=== PATIENT | female | born 1965 | race Caucasian/White ===

== ENCOUNTER 2019-12-16 08:38 | Day surgery (SDC) | payer MEDICARE, OTHER ==
[~2019-12-16] VITALS: Ht 162.6 cm; Wt 97.1 kg
[~2019-12-16 08:38] MED LIST: CART180C3 PO; GLUC500T PO; LASI20TA3 PO; LOPR1TAB6 PO; LOVA40TA PO; LR 1,000 ML IV ONE; PANT40TA3 PO; PROM12.56 PO; SUCR1TAB56 PO; ZOFR4TAB16 PO; ZOLO100T PO
--- NOTE | 2019-12-16 12:59 | ROOR ---
Patient Name: Sabrina Mccann Procedure Date: 12/16/2019 11:31 AM Date of : 1965 Age: 54 Room: [facility] Gender: Female Note Status: Finalized Procedure: Upper GI endoscopy Indications: Heartburn, Abnormal UGI series Providers: Ashwin BOONE MD Referring MD: Sudhakar Ross MD Requesting Provider: Medicines: Monitored Anesthesia Care Complications: No immediate complications. Procedure: Pre-Anesthesia Assessment: - The heart rate, respiratory rate, oxygen saturations, blood pressure, adequacy of pulmonary ventilation, and response to care were monitored throughout the procedure. The Endoscope was introduced through the mouth, and advanced to the second part of duodenum. The upper GI endoscopy was accomplished without difficulty. The patient tolerated the procedure well. Findings: The examined esophagus was normal. Patchy mildly erythematous mucosa without bleeding was found in the gastric antrum. Biopsies were taken with a cold forceps for histology. Bilious fluid was found in the entire examined stomach. The exam of the stomach was otherwise normal. (large volume) The examined duodenum was normal. Impression: - Normal esophagus. - Mild gastritis. Biopsied - Otherwise normal stomach. (no ulcers) - Normal examined duodenum. Recommendation: - Continue present medications. - Telephone endoscopist for pathology results in 2 weeks. - Return to referring physician as previously scheduled. Ashwin Boone MD Ashwin BOONE MD 12/16/2019 12:59:11 PM Electronically signed by Ashwin BOONE MD Number of Addenda: 0 Note Initiated On: 12/16/2019 11:31 AM Estimated Blood Loss: Estimated blood loss: none.
[2019-12-16] MEDS ORDERED: propofoL 200 MG/20 ML VIAL As Ordered ONE (13:06)
[2019-12-16] MEDS ORDERED: LIDOCAINE 2% INJ 100 MG/5 ML SDV (FOR ANES.) As Ordered ONE (13:06)
[2019-12-16 13:20] VITALS: BP 138/86
== END 2019-12-16 13:36 | disposition home or self-care (01) ==
LOC: M OPP 08:38
PROVIDERS: ATTEND Internal Medicine Gastroenterology
DX: K31.89 Other diseases of stomach and duodenum (principal); R12 Heartburn; R93.3 Abnormal findings on diagnostic imaging of other parts of digestive tract; I48.91 Unspecified atrial fibrillation; G47.30 Sleep apnea, unspecified; F17.210 Nicotine dependence, cigarettes, uncomplicated; Z79.899 Other long term (current) drug therapy; Z88.5 Allergy status to narcotic agent; Z91.041 Radiographic dye allergy status; Z95.0 Presence of cardiac pacemaker

== ENCOUNTER → 2024-12-31 | Outpatient (REF) | payer MEDICARE, OTHER ==
[~2024-12-31] MED LIST changes: -LR 1,000 ML IV ONE; +ONDA-83 PO; +PANT40TA29 PO; -PANT40TA3 PO; +TIRZ5PEN SQ
== END ==
LOC: M SFHCDERM 16:25
PROVIDERS: ATTEND Nurse Practitioner Family
DX: D49.2 Neoplasm of unspecified behavior of bone, soft tissue, and skin (principal); C44.91 Basal cell carcinoma of skin, unspecified

== ENCOUNTER 2025-01-11 09:41 | Day surgery (SDC) | payer MEDICARE, OTHER ==
[~2025-01-11] VITALS: Ht 157.5 cm; Wt 82.4 kg
[~2025-01-11 09:41] MED LIST changes: +GLYCOPYRROLATE INJ 0.2 MG/ML 2 ML VIAL As Ordered ONE; +LIDOCAINE 2% 100MG/5ML SDV (FOR ANES.) As Ordered ONE; +fentaNYL 100 MCG/2 ML INJECTION As Ordered ONE; +propofoL 200 MG/20 ML VIAL As Ordered ONE
[2025-01-11 11:35] VITALS: TEMP 98.6
[2025-01-11 11:58] VITALS: BP 115/76; O2SAT 95
== END 2025-01-11 11:59 | disposition home or self-care (01) ==
LOC: M OPP 09:41
PROVIDERS: ATTEND Internal Medicine Gastroenterology
DX: K63.5 Polyp of colon (principal); K57.30 Diverticulosis of large intestine without perforation or abscess without bleeding; K64.8 Other hemorrhoids; K52.9 Noninfective gastroenteritis and colitis, unspecified; K29.70 Gastritis, unspecified, without bleeding; R10.9 Unspecified abdominal pain; I48.91 Unspecified atrial fibrillation; Z95.0 Presence of cardiac pacemaker; G47.30 Sleep apnea, unspecified; Z88.5 Allergy status to narcotic agent; Z91.041 Radiographic dye allergy status; Z79.85 Long-term (current) use of injectable non-insulin antidiabetic drugs; Z79.899 Other long term (current) drug therapy; J44.9 Chronic obstructive pulmonary disease, unspecified; F17.210 Nicotine dependence, cigarettes, uncomplicated
CPT/HCPCS: 43239; 45380; 45385; 88305; J1596; J3010

== ENCOUNTER → 2025-01-27 | Outpatient (REF) | payer MEDICARE, OTHER ==
[~2025-01-27] MED LIST changes: -GLYCOPYRROLATE INJ 0.2 MG/ML 2 ML VIAL As Ordered ONE; -LIDOCAINE 2% 100MG/5ML SDV (FOR ANES.) As Ordered ONE; -fentaNYL 100 MCG/2 ML INJECTION As Ordered ONE; -propofoL 200 MG/20 ML VIAL As Ordered ONE
== END ==
LOC: M SFHCDERM 17:51
PROVIDERS: ATTEND Physician Assistant
DX: C44.629 Squamous cell carcinoma of skin of left upper limb, including shoulder (principal)